=== PATIENT | female | born 1960 | race Hispanic/Latino ===

== ENCOUNTER 2021-11-07 15:17 | Emergency (ER) | payer OTHER ==
[2021-11-07] MEDS ORDERED: ONDANSETRON 4MG INJ IV ONE (15:30)
[2021-11-07] MEDS ORDERED: ONDANSETRON 4MG INJ ONE (15:30)
[2021-11-07 15:54] LABS: BASOPHILS % (AUTO) 0.2 % (0.0-5.0); HEMATOCRIT 38.9 % (36-48); LYMPHOCYTES % (AUTO) 12.4 % (21.0-51.0); MEAN CORPUSCULAR HEMOGLOBIN 34.1 pg (27.0-33.0); MEAN CORPUSCULAR HGB CONC 36.5 g/dL (32.0-36.0); MEAN CORPUSCULAR VOLUME 93.5 fL (79-99); MONOCYTES % (AUTO) 10.7 % (3.0-13.0); NEUTROPHILS % (AUTO) 76.2 % (40.0-77.0); PLATELET COUNT (AUTO) 91 K/uL (130-400); RED BLOOD CELL COUNT(AUTO) 4.16 MIL/uL (4.00-5.50); RED CELL DISTRIBUTION WIDTH 12.2 % (11.0-15.5); WHITE BLOOD COUNT (AUTO) 18.3 K/uL (4.8-10.8)
[2021-11-07 15:58] LABS: CREATININE 0.8 mg/dL (0.5-1.5); POTASSIUM 3.3 mmol/L (3.5-5.1)
[2021-11-07 16:03] LABS: ALBUMIN 3.5 g/dL (3.5-5.0); TOTAL PROTEIN, SERUM 7.7 g/dL (6.0-8.3)
[2021-11-07] MEDS ORDERED: KETOROLAC 30MG VIAL (30MG/ML) ONE (16:13)
[2021-11-07] MEDS ORDERED: KETOROLAC 15MG/ML VIAL (15MG/ML) IV ONE (16:30)
[2021-11-07] MEDS ORDERED: POTASSIUM CHLORIDE 10% ELIXIR 20 MEQ/15 ML UDCUP PO ONE (16:30)
[2021-11-07] MEDS ORDERED: ESOM40CA PO (16:59)
[2021-11-07] MEDS ORDERED: ONDA4TAB10 PO (16:59)
[2021-11-07 17:02] VITALS: BP 119/70
== END 2021-11-07 18:00 | disposition home or self-care (01) ==
LOC: EDH 15:17
DX: I10 Essential (primary) hypertension (principal); Z20.822 Contact with and (suspected) exposure to COVID-19; Z91.14 Patient's other noncompliance with medication regimen
CPT/HCPCS: 99285; 96374; 71045; 87635; 96375; 84484; 80053; 85025; 87804 ×2; 36415; 93005; C9803; J2405 ×2; J1885